=== PATIENT | female | born 1960 | race Caucasian/White ===

== ENCOUNTER 2019-12-24 15:18 | Outpatient (CLI) | payer BC, SELFPAY ==
--- NOTE | ~2019-12-24 | CT_ITS ---
EXAMINATION: CT abdomen pelvis wo con EXAM DATE: 12/24/2019 15:37 INDICATION: Low back pain, gross hematuria. TECHNIQUE: Spiral CT of the abdomen and pelvis was performed without contrast. Axial, coronal and s agittal images were reviewed. The dose-length product (DLP) for this examination was 332.09 mGy-cm. The exposure was tailored according to patient size (auto mA exposure control), and iterative recons truction (ASIR) was used as additional dose reduction technique. There is no prior study for compari son. FINDINGS: The liver, spleen, adrenal glands and pancreas are unremarkable. Gallbladder is unremarkab le. No biliary obstruction. There is a 4 mm stone at the left ureterovesicular junction with mild l eft perinephric fat stranding, but no hydronephrosis at present. Additional punctate left nephrolithi asis. No right nephrolithiasis. There is atrophic uterus versus partial hysterectomy. The bladder i s unremarkable. There is no retroperitoneal or pelvic lymphadenopathy. There is mild scattered art eriosclerotic disease. Several small basilar nodules likely postinfectious, largest measuring 5 mm ab ove the left hemidiaphragm. The appendix is normal. The stomach and small bowel are unremarkable. There is expected amount of c olonic stool. No free intraperitoneal gas. The heart is normal in size. There are no pericardial or pleural effusions. The bones are unremarkable. IMPRESSION: 1. Left UVJ 4 mm stone, mild perinephric fat stranding. 2. Punctate left nephrolithiasis. 3. Optional follow-up low-dose chest CT for several small basilar nodules. Urologist consultants would appreciate KUB as baseline for follow-up, treatment planning. Reviewed, dictated and finalized at location A.
== END 2019-12-24 15:19 | disposition home or self-care (01) ==
PROVIDERS: PCP Internal Medicine; Visit Provider Internal Medicine
DX: M54.5 Low back pain (principal); R31.0 Gross hematuria; N20.0 Calculus of kidney; R91.8 Other nonspecific abnormal finding of lung field
CPT/HCPCS: 74176